=== PATIENT | female | born 1950 | race Caucasian/White ===

== ENCOUNTER 2018-05-05 20:39 | Inpatient (IN) | payer MEDICARE, BC ==
[~2018-05-05] VITALS: Ht 167.6 cm; Wt 48.2 kg
[2018-05-05 22:35] LABS: BASOPHILS 0.4 % (0-2); EOSINOPHILS 1.6 % (0-7); HEMATOCRIT 36.6 % (36.0-48.0); HEMOGLOBIN 12.6 g/dL (12-16); IMMATURE GRANULOCYTES 0.2 % (0-5); LYMPHOCYTES 22.3 % (15-50); MCH 32.6 pg (26.0-34.0); MCHC 34.4 g/dL (31.0-37.0); MCV 94.8 fL (80.0-100.0); MEAN PLATELET VOLUME 9.8 fL (7.4-10.4); NEUTROPHILS 64.5 % (40-80); PLATELET COUNT 177 10x3/uL (130-400); RBC 3.86 10x6/uL (4.00-5.40); RDW 12.3 % (11.5-14.5); WBC 5.6 10x3/uL (4.8-10.8)
[2018-05-05 22:43] LABS: INR 1.02 (0.85-1.17)
[2018-05-05 22:53] LABS: ALBUMIN 3.3 g/dL (3.4-5.0); ALKALINE PHOSPHATASE 89 U/L (46-116); ALT (SGPT) 22 U/L (10-68); BILIRUBIN - TOTAL 0.69 mg/dL (0.2-1.3); CALC OSMOLALITY 280 mosm/kg (275-300); CALCIUM 8.2 mg/dL (8.5-10.1); CARBON DIOXIDE 27.5 mmol/L (21.0-32.0); CHLORIDE - SERUM 105 mmol/L (98-107); CREATININE - SERUM 0.6 mg/dL (0.6-1.3); GLUCOSE 91 mg/dL (74-106); POTASSIUM - SERUM 3.9 mmol/L (3.5-5.1); PROTEIN - SERUM 6.5 g/dL (6.4-8.2); SODIUM 142 mmol/L (136-145); UREA NITROGEN 7 mg/dL (7-18); eGFR NON AFRICAN AMERICAN > 90 mL/min (90-120)
[2018-05-06] VITALS (14 sets, daily range): BP systolic 99–133; BP diastolic 51–75; Ht 167.6 cm; Wt 48.2 kg
[2018-05-06 00:03] LABS: ERYTHROCYTE SEDIMENTATION RATE 5 mm/hr (0-30)
[2018-05-06 07:39] LABS: BASOPHILS 0.5 % (0-2); HEMATOCRIT 34.4 % (36.0-48.0); HEMOGLOBIN 11.4 g/dL (12-16); IMMATURE GRANULOCYTES 0.2 % (0-5); MCH 31.8 pg (26.0-34.0); MCHC 33.1 g/dL (31.0-37.0); MCV 95.8 fL (80.0-100.0); MEAN PLATELET VOLUME 9.9 fL (7.4-10.4); MONOCYTES 9.4 % (2-11); NEUTROPHILS 68.9 % (40-80); PLATELET COUNT 159 10x3/uL (130-400); RBC 3.59 10x6/uL (4.00-5.40); RDW 12.3 % (11.5-14.5); WBC 6.1 10x3/uL (4.8-10.8)
[2018-05-06 07:58] LABS: ALBUMIN 2.9 g/dL (3.4-5.0); ALKALINE PHOSPHATASE 77 U/L (46-116); ALT (SGPT) 17 U/L (10-68); BILIRUBIN - TOTAL 0.98 mg/dL (0.2-1.3); CALC OSMOLALITY 282 mosm/kg (275-300); CALCIUM 8.3 mg/dL (8.5-10.1); CARBON DIOXIDE 28.6 mmol/L (21.0-32.0); CHLORIDE - SERUM 109 mmol/L (98-107); CREATININE - SERUM 0.5 mg/dL (0.6-1.3); GLUCOSE 93 mg/dL (74-106); PROTEIN - SERUM 5.8 g/dL (6.4-8.2); SODIUM 143 mmol/L (136-145); UREA NITROGEN 6 mg/dL (7-18); eGFR NON AFRICAN AMERICAN > 90 mL/min (90-120)
[2018-05-06 10:38] LABS: % SATURATION 33 % (15-55); IRON 65 ug/dl (35-150); TOTAL IRON BIND CAPACITY 196 ug/dl (260-445); UNSAT IRON BIND CAPACITY 131 ug/dl (150-375)
[2018-05-07 04:06] VITALS: BP 135/62
[2018-05-07 04:49] LABS: FOLATE (FOLIC ACID) - SERUM 17.3 ng/mL (>3.0)
[2018-05-07 06:19] LABS: BASOPHILS 0.2 % (0-2); EOSINOPHILS 1.2 % (0-7); HEMATOCRIT 33.2 % (36.0-48.0); HEMOGLOBIN 11.3 g/dL (12-16); IMMATURE GRANULOCYTES 0.2 % (0-5); LYMPHOCYTES 19.6 % (15-50); MCH 32.4 pg (26.0-34.0); MCV 95.1 fL (80.0-100.0); MEAN PLATELET VOLUME 10.1 fL (7.4-10.4); MONOCYTES 11.5 % (2-11); NEUTROPHILS 67.3 % (40-80); PLATELET COUNT 167 10x3/uL (130-400); RBC 3.49 10x6/uL (4.00-5.40); RDW 12.3 % (11.5-14.5); WBC 5.8 10x3/uL (4.8-10.8)
[2018-05-07 06:43] LABS: CALC OSMOLALITY 270 mosm/kg (275-300); CALCIUM 8.4 mg/dL (8.5-10.1); CARBON DIOXIDE 31.3 mmol/L (21.0-32.0); CHLORIDE - SERUM 103 mmol/L (98-107); CREATININE - SERUM 0.6 mg/dL (0.6-1.3); GLUCOSE 95 mg/dL (74-106); POTASSIUM - SERUM 3.5 mmol/L (3.5-5.1); SODIUM 137 mmol/L (136-145); eGFR NON AFRICAN AMERICAN > 90 mL/min (90-120)
[2018-05-07 06:48] LABS: UREA NITROGEN 3 mg/dL (7-18)
[2018-05-07 08:25] VITALS: BP 118/55
[2018-05-07 11:37] VITALS: BP 98/52
[2018-05-07 16:05] VITALS: BP 89/43
[2018-05-07 22:41] VITALS: BP 132/69
[2018-05-08 03:58] VITALS: BP 145/70
[2018-05-08 06:27] LABS: BASOPHILS 0.6 % (0-2); EOSINOPHILS 1.5 % (0-7); HEMATOCRIT 33.5 % (36.0-48.0); HEMOGLOBIN 11.3 g/dL (12-16); IMMATURE GRANULOCYTES 0.2 % (0-5); LYMPHOCYTES 27.8 % (15-50); MCHC 33.7 g/dL (31.0-37.0); MCV 94.9 fL (80.0-100.0); MONOCYTES 11.3 % (2-11); NEUTROPHILS 58.6 % (40-80); PLATELET COUNT 177 10x3/uL (130-400); RBC 3.53 10x6/uL (4.00-5.40); RDW 12.2 % (11.5-14.5); WBC 4.8 10x3/uL (4.8-10.8)
[2018-05-08 07:05] LABS: CALC OSMOLALITY 274 mosm/kg (275-300); CALCIUM 8.8 mg/dL (8.5-10.1); CARBON DIOXIDE 29.7 mmol/L (21.0-32.0); CHLORIDE - SERUM 106 mmol/L (98-107); CREATININE - SERUM 0.6 mg/dL (0.6-1.3); GLUCOSE 92 mg/dL (74-106); POTASSIUM - SERUM 3.9 mmol/L (3.5-5.1); SODIUM 139 mmol/L (136-145); eGFR NON AFRICAN AMERICAN > 90 mL/min (90-120)
[2018-05-08 07:07] LABS: UREA NITROGEN 4 mg/dL (7-18)
[2018-05-08 08:12] VITALS: BP 132/66
[2018-05-08] MEDS ORDERED: NORCO-5 PO (09:08)
[2018-05-08] MEDS ORDERED: CLEOCIN HCL300 MG PO (09:09)
== END 2018-05-08 11:56 | disposition home or self-care (01) | DRG 513 ==
LOC: D.ER 20:39 → D.MS 23:27 → D.EDHOLD 23:27 → D.MS 23:47
PROVIDERS: Family Medicine; Internal Medicine Nephrology; Orthopaedic Surgery
PROC: 0PSP04Z Reposition Right Metacarpal with Internal Fixation Device, Open Approach (ICD-10-PCS; principal; 2018-05-06 00:07)
DX: S62.390B Other fracture of second metacarpal bone, right hand, initial encounter for open fracture (principal); E43 Unspecified severe protein-calorie malnutrition; F17.203 Nicotine dependence unspecified, with withdrawal; Z68.1 Body mass index [BMI] 19.9 or less, adult; W54.0XXA Bitten by dog, initial encounter; F10.10 Alcohol abuse, uncomplicated; J44.9 Chronic obstructive pulmonary disease, unspecified; D64.9 Anemia, unspecified

== ENCOUNTER 2019-12-20 10:59 | Day surgery (SDC) | payer MEDICARE, BC ==
[~2019-12-20] VITALS: Ht 167.6 cm; Wt 48.1 kg
--- NOTE | ~2019-12-20 | OP ---
PATIENT NAME: KARTHIKEYAN WARNER MEDICAL RECORD: [id number] :54 LOCATION:[facility] ADMISSION DATE: SURGEON: ORIANA SINGH MD DATE OF OPERATION: 12/20/2019 PREOPERATIVE DIAGNOSIS: Acute distal radius fracture of the left wrist with acute carpal tunnel syndrome. POSTOPERATIVE DIAGNOSIS: Acute distal radius fracture of the left wrist with acute carpal tunnel syndrome. PROCEDURES: 1. Open reduction and internal fixation of left distal radius. 2. Carpal tunnel release. 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 SUMMARY OF PATHOLOGIC FINDINGS: Consistent with preoperative radiographs as well as the preoperative examination, the patient had substantial amount of hematoma in the carpal canal causing compression of the median nerve, which required carpal tunnel release. Furthermore, the patient had decrease in radial height, decrease in radial angle inclination as well as decrease in volar tilt. This was reduced and then plated. OPERATIVE SUMMARY IN DETAIL: After obtaining the appropriate preoperative orthopedic surgery consent as well as anesthetic consultation, evaluation and clearance, the patient was brought to the operating room and placed on the operating table in a supine position. After adequate general laryngeal mask airway was administered, tourniquet was placed about the proximal aspect of the left upper extremity. Left upper extremity was then prepped and draped in routine sterile fashion. The arm was elevated and exsanguinated. Tourniquet inflated to 250 mmHg. After the appropriate timeout was taken and agreed upon by all given the patient's unique identifiers, traction countertraction procedure was performed. Fluoroscopic guidance then showed good anatomic congregation; however, the patient had substantial dorsal comminution as well as an intra-articular component. Curvilinear incision was made in keeping with volar's Saulo approach including carpal tunnel release. This was taken down to the level of the distal radial articular anatomic location. Without violating the wrist itself, the reduction was completed under direct visualization. Arthrex VariAx plate was then placed with a combination of both locking and nonlocking screws. This was done under fluoroscopic guidance in both AP and lateral planes, showed excellent congregation of the patient's volar tilt, radial angle of inclination, and radial height. Once the plate was affixed, final AP and lateral radiographs were taken and submitted for radiologist review. Having completed this, the wound was copiously irrigated and closed with 2-0 Vicryl, followed by 4-0 Prolene by CONSTANCE Dodson. Sterile dressings were applied. Tourniquet was deflated. The patient was awakened and taken to recovery room in stable condition. All final needle and sponge counts were correct. TRANSINT:[id number] Voice Confirmation ID: [id number] DOCUMENT ID: [id number] 12/27/[address] Singh/audra MCGOWAN. OPERATIVE REPORT [id number] KARTHIKEYAN WARNER MD, ORIANA DAVID CC: [id number] DICTATION DATE: 12/21/19922 [facility] PORTER: 12/21/19 [address] [facility] [place] 12/20/19 [facility] [address] [place] [address]
[~2019-12-20 10:59] MED LIST: CLEOCIN HCL300 MG PO; NORCO-5 PO
[2019-12-20 11:31] LABS: HEMATOCRIT 38.4 % (36.0-48.0); HEMOGLOBIN 13.2 g/dL (12-16); MCH 32.9 pg (26.0-34.0); MCHC 34.4 g/dL (31.0-37.0); MCV 95.8 fL (80.0-100.0); MEAN PLATELET VOLUME 9.1 fL (7.4-10.4); RBC 4.01 10x6/uL (4.00-5.40); RDW 12.3 % (11.5-14.5); WBC 5.7 10x3/uL (4.8-10.8)
[2019-12-20 12:33] VITALS: Ht 167.6 cm; Wt 48.1 kg
[2019-12-20] MEDS ORDERED: HYDROCODON-ACE1 EA10 PO (14:10)
--- NOTE | 2019-12-20 15:52 | NUR ---
DC INSTRUCTIONS GIVEN TO PT. STATES UNDERSTANDING. DC'D IV CATH FULLY INTACT.
--- NOTE | 2019-12-20 16:08 | NUR ---
PT READY TO LEAVE AT 1600. WAITING FOR PT'S RIDE TO ARRIVE.
--- NOTE | 2019-12-20 16:25 | NUR ---
PT LEFT UNIT VIA WC AT 1622
== END 2019-12-20 16:22 | disposition home or self-care (01) ==
LOC: D.OPS 10:59 → D.PAN 13:15 → D.OPS 16:22
PROVIDERS: Anesthesiology; ATTEND Orthopaedic Surgery
DX: G56.02 Carpal tunnel syndrome, left upper limb (principal); S52.502A Unspecified fracture of the lower end of left radius, initial encounter for closed fracture; X58.XXXA Exposure to other specified factors, initial encounter; S52.122A Displaced fracture of head of left radius, initial encounter for closed fracture; S52.602A Unspecified fracture of lower end of left ulna, initial encounter for closed fracture

== ENCOUNTER 2019-12-21 01:11 | Emergency (ER) | payer MEDICARE, BC ==
[~2019-12-21] VITALS: Ht 167.6 cm; Wt 48.2 kg
[~2019-12-21 01:11] MED LIST changes: +HYDROCODON-ACE1 EA10 PO
[2019-12-21 01:18] VITALS: BP 153/77; Ht 167.6 cm; Wt 48.2 kg
== END 2019-12-21 01:59 | disposition home or self-care (01) ==
LOC: D.ER 01:11
DX: T81.9XXA Unspecified complication of procedure, initial encounter (principal); R20.0 Anesthesia of skin